=== PATIENT | male | born 1970 | race Caucasian/White ===

== ENCOUNTER 2016-05-28 09:58 | Day surgery (SDC) | payer BC ==
[~2016-05-28 09:58] MED LIST: Lactated Ringers 1,000 ML IV SCH; Sodium Chloride 0.9% 10 ML Syringe FLUSH PRN
[2016-05-28] MEDS ORDERED: fentaNYL 100 MCG/2 ML SDV ONE ×2 (10:45→10:55)
[2016-05-28] MEDS ORDERED: Propofol 200 MG/20 ML SDV ONE ×3 (10:45→11:45)
[2016-05-28] MEDS ORDERED: Midazolam 1 MG/ML 2 ML SDV ONE ×3 (10:45→11:02)
--- NOTE | 2016-05-28 10:51 | PCM.PN ---
- General Info Date of Service: 05/28/16 - Review of Systems Systems Review Comment:: 45-year-old male referred by Ino Singh for EGD and colonoscopy. The patient has been having some symptoms of epigastric pain. He also has a long- standing history of PPI agents used for GERD symptoms. He has also noted a recent change in bowel pattern with it. With a period of profound constipation. He is medically stable to proceed today. There is been no significant change in his health status since his last history and physical which is reviewed today. I have discussed the proposed EGD and colonoscopy with the patient. Risks discussed included but were not limited to bleeding and GI injury. He appears to understand and agrees to proceed. - Patient Data Vitals - most recent: Last Vital Signs Temp 97.8 F 05/28/16 10:16 Pulse 90 05/28/16 10:16 Resp 20 05/28/16 10:16 BP 156/85 H 05/28/16 10:16 Pulse Ox 100 05/28/16 10:16 Weight - most recent: 118.841 kg Med Orders - Current: Current Medications Lactated Ringer's (Ringers, Lactated) 1,000 mls @ 125 mls/hr IV ASDIRECTED PATRICK Last Admin: 05/28/16 10:28 Dose: 125 mls/hr Sodium Chloride (Saline Flush) 10 ml FLUSH ASDIRECTED PRN PRN Reason: Keep Vein Open Discontinued Medications Fentanyl (Sublimaze) Confirm Administered Dose 100 mcg .ROUTE .STK-MED ONE Stop: 05/28/16 10:46 Midazolam HCl (Versed 1 Mg/Ml) Confirm Administered Dose 4 mg .ROUTE .STK-MED ONE Stop: 05/28/16 10:46 Propofol (Diprivan 20 Ml) Confirm Administered Dose 400 mg .ROUTE .STK-MED ONE Stop: 05/28/16 10:46 - Problem List Review Problem List Initiated/Reviewed/Updated: Yes - Assessment Assessment:: Epigastric pain Change in bowel habits - Plan Plan:: EGD and colonoscopy
[2016-05-28] MEDS ORDERED: Lidocaine 2% 5 ML SDV ONE (10:55)
--- NOTE | 2016-05-28 11:43 | PCM.OPNOTE ---
- General Post-Op/Procedure Note Date of Surgery/Procedure: 05/28/16 Operative Procedure(s): EGD with Biopsy and Colonoscopy with polypectomy Findings: Small Hiatal Hernia with lower Esophageal mucosal changes Rectal and Sigmoid Colon Polyps Pre Op Diagnosis: Epigastric Pain. Change in Bowel Habits Post-Op Diagnosis: Hiatal Hernia. Colon Polyps Anesthesia Technique: MAC Primary Surgeon: Vikram Freedman Pathology: Biopsies of Gastric Antrum and Distal Esophagus Rectal and Sigmoid Colon Polyps Output, Urine Amount: 0 EBL in mLs: 3 Complications: None Condition: Good
[2016-05-28 12:20] VITALS: BP 123/63
--- NOTE | 2016-05-28 19:02 | OR ---
Date of Procedure: 05/28/2016 PREOPERATIVE DIAGNOSES: 1. Epigastric pain. 2. Change in bowel habits. POSTOPERATIVE DIAGNOSES: 1. Hiatal hernia. 2. Colon polyps. OPERATION PERFORMED: Esophagogastroduodenoscopy with biopsy and colonoscopy with polypectomy. INDICATIONS FOR SURGERY: This 45-year-old male has been having symptoms of epigastric pain. He has a longstanding history of PPI agent use and it has been many years since his last upper endoscopy. The patient has also noted a recent change in bowel habits. FINDINGS: On upper endoscopy, the patient was noted to have a small hiatal hernia and some minor mucosal changes in the lower part of the esophagus with salmon-colored mucosa over the lower 1-2 cm. No acute inflammation was seen, and no visible abnormalities were noted within the gastric mucosa or duodenum. On colonoscopy, the patient has a 1 cm pedunculated polyp at the sigmoid colon level, 25 cm from the anal verge. He also has a cluster of two small polyps, 3- 4 mm in size in the rectum, 5 cm from the anal verge. The remainder of the colon appears normal. DESCRIPTION OF PROCEDURE: The patient was taken to the operating room. He was given intravenous sedation and his throat was topically anesthetized. After mouth block was placed and IV sedation had been administered, the esophagus was intubated with the Olympus gastroscope. This was carefully advanced under direct visualization through the entire length of the esophagus, stomach, and down into the duodenum where examination of the 4th portion was performed. After carefully examining the duodenum, the scope was slowly withdrawn back up into the stomach. Full examination of the stomach including retroflexed examination of the fundus was performed. Biopsies of the antrum were taken to rule out H. pylori. The GE junction and the area of the small hiatal hernia were carefully examined, and biopsies were taken of the lower esophageal mucosa. With no sign of complicating process, the scope was then removed and attention turned to colonoscopy. Digital rectal exam shows no rectal masses. The Olympus colonoscope was inserted into the rectum and retroflexed. Examination of the rectal canal was performed. In the rectum, 5 cm from the anal verge, were two small polyps which were both easily removed grossly in their entirety with the biopsy forceps. The scope was then further advanced into the sigmoid level, where the above-described larger polyp was identified. This was removed with a cautery snare and retrieved into a polyp trap. The scope was then carefully advanced under direct visualization through the entire length of the colon until cecum was reached. Cecal acquisition was confirmed by noting the normal internal cecal anatomy including the appendiceal orifice and ileocecal valve. After examining the cecum, the scope was slowly withdrawn, sequentially re- examining the colonic segments until the entire colon and rectum had been fully examined. With no sign of any complicating process, the scope was removed and the patient was taken from the operating room in satisfactory condition. ESTIMATED BLOOD LOSS: 2 mL. COMPLICATIONS: None. PROGNOSIS: Good. BRITTANY Freedman MD /[id number]
== END 2016-05-28 12:46 | disposition home or self-care (01) ==
LOC: LL.SDS 09:58
PROVIDERS: ATTEND Surgery
DX: K63.5 Polyp of colon (principal); K62.1 Rectal polyp; K31.9 Disease of stomach and duodenum, unspecified; K22.8 Other specified diseases of esophagus; Z88.0 Allergy status to penicillin; Z79.899 Other long term (current) drug therapy; I10 Essential (primary) hypertension; K21.9 Gastro-esophageal reflux disease without esophagitis; F17.200 Nicotine dependence, unspecified, uncomplicated
CPT/HCPCS: 43239; 45385; J2250; J2704; J3010; J7120

== ENCOUNTER 2016-07-12 10:40 | Emergency (ER) | payer BC ==
[2016-07-12 10:47] VITALS: BP 124/84
[2016-07-12] MEDS ORDERED: Tetracaine 0.5% 2 ML Bottle EYERT ONE (10:49)
[2016-07-12] MEDS ORDERED: Tetracaine 0.5% 2 ML Bottle ONE (10:50)
--- NOTE | 2016-07-12 11:00 | EDM.PDOC ---
ED HPI GENERAL MEDICAL PROBLEM - General Chief Complaint: ENT Problem Stated Complaint: right eye pain Time Seen by Provider: 07/12/16 10:42 Source of Information: Reports: Patient History Limitations: Reports: No Limitations - History of Present Illness INITIAL COMMENTS - FREE TEXT/NARRATIVE: Got debrie in right eye yesterday. Irrigated out at home. Now red and painful Onset: Gradual Duration: Day(s): Location: Reports: Face Quality: Reports: Burning Severity: Moderate - Related Data Allergies Allergy/AdvReac Type Severity Reaction Status Date / Time Penicillins Allergy unknown Verified 07/12/16 10:41 Home Meds: Home Meds Pantoprazole Sodium 40 mg PO DAILY 05/28/16 [History] amLODIPine Besylate [Amlodipine Besylate] 10 mg PO DAILY 05/28/16 [History] Ibuprofen 600 mg PO Q6H PRN 07/12/16 [History] Past Medical History Cardiovascular History: Reports: Hypertension Gastrointestinal History: Reports: GERD Social & Family History - Tobacco Use Smoking Status *Q: Current Every Day Smoker Years of Tobacco use: 25 Packs/Tins Daily: 0.5 - Caffeine Use Caffeine Use: Reports: None - Alcohol Use Days Per Week of Alcohol Use: 4 - Recreational Drug Use Recreational Drug Use: No ED ROS GENERAL - Review of Systems Review Of Systems: See Below Constitutional: Reports: No Symptoms HEENT: Reports: Eye Pain ED EXAM GENERAL W FULL EYE - Physical Exam Exam: See Below Eye Exam: Right Eye: Foreign Body, Bilateral Eye: PERRL Eyelids: Bilateral: Normal Appearance Conjunctiva & Sclera: Right: Injected Cornea Exam: Right: Normal Appearance Extraocular Movements: Bilateral: Intact Comments: Small foreign body removed from under upper lid with Qtip. No others identified Course - Vital Signs Last Recorded V/S: Last Vital Signs Temp 37.1 C 07/12/16 10:46 Pulse 77 07/12/16 10:46 Resp 16 07/12/16 10:46 BP 124/84 07/12/16 10:46 Pulse Ox 98 07/12/16 10:46 - Orders/Labs/Meds Meds: Medications Discontinued Medications Generic Name Dose Route Start Last Admin Trade Name Freq PRN Reason Stop Dose Admin Tetracaine 0.25 ml 07/12/16 10:49 Pontocaine 0.5% Ophth Drops EYERT 07/12/16 10:50 ASDIRECTED ONE Tetracaine Confirm 07/12/16 10:50 Pontocaine 0.5% Ophth Drops Administered 07/12/16 10:51 Dose 2 ml .ROUTE .STK-MED ONE Departure - Departure Time of Disposition: 11:00 Disposition: Home, Self-Care 01 Clinical Impression: Conjunctivitis Qualifiers: Conjunctivitis type: unspecified Laterality: right Qualified Code(s): H10.9 - Unspecified conjunctivitis - Discharge Information Instructions: Eye Foreign Body, [id number] Forms: ED Department Discharge Additional Instructions: Use drops as directed Follow up in clinic
== END 2016-07-12 11:16 | disposition home or self-care (01) ==
LOC: LL.ED 10:40
DX: H10.9 Unspecified conjunctivitis (principal); I10 Essential (primary) hypertension; K21.9 Gastro-esophageal reflux disease without esophagitis; F17.210 Nicotine dependence, cigarettes, uncomplicated; Z88.0 Allergy status to penicillin; Z79.899 Other long term (current) drug therapy
CPT/HCPCS: 99283

== ENCOUNTER 2017-06-22 06:42 | Emergency (ER) | payer BC ==
[2017-06-22 06:49] VITALS: BP 133/83
[2017-06-22] MEDS ORDERED: Tetracaine HCl/PF 0.5% 4 ML Bottle EYERT ONE (07:31)
--- NOTE | 2017-06-22 07:38 | EDM.PDOC ---
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: Reports: Other (see below) Other Treatments STRETCHER LEVELER OPERATOR HELPER: flushed eye out Right Eye Pain Score (Numeric/FACES): 5 - Related Data Allergies Allergy/AdvReac Type Severity Reaction Status Date / Time Penicillins Allergy unknown Verified 06/22/17 06:43 Home Meds: Home Meds Pantoprazole Sodium 40 mg PO DAILY 05/28/16 [History] amLODIPine Besylate [Amlodipine Besylate] 10 mg PO DAILY 05/28/16 [History] Ibuprofen 600 mg PO Q6H PRN 07/12/16 [History] Past Medical History Cardiovascular History: Reports: Hypertension Gastrointestinal History: Reports: GERD Social & Family History - Tobacco Use Smoking Status *Q: Current Every Day Smoker Years of Tobacco use: 25 Packs/Tins Daily: 0.5 - Caffeine Use Caffeine Use: Reports: None - Alcohol Use Days Per Week of Alcohol Use: 4 Number of Drinks Per Day: 4 Total Drinks Per Week: 16 - Recreational Drug Use Recreational Drug Use: No ED ROS GENERAL - Review of Systems Review Of Systems: See Below Constitutional: Reports: No Symptoms HEENT: Reports: Eye Pain Respiratory: Reports: No Symptoms Cardiovascular: Reports: Blood Pressure Problem Endocrine: Reports: No Symptoms GI/Abdominal: Reports: No Symptoms, Other (Chronic gastritis) : Reports: No Symptoms Musculoskeletal: Reports: No Symptoms Skin: Reports: No Symptoms Neurological: Reports: No Symptoms Psychiatric: Reports: No Symptoms ED EXAM GENERAL W FULL EYE - Physical Exam Exam: See Below Exam Limited By: No Limitations General Appearance: Alert, WD/WN, No Apparent Distress Eye Exam: Right Eye: Corneal Abrasion, Bilateral Eye: EOMI, PERRL Visual Acuity (R) 20/: 30 Visual Acuity (L) 20/: 20 With Correction: No Eyelids: Bilateral: Normal Appearance, Edema, Ecchymosis, Foreign Body Conjunctiva & Sclera: Bilateral: Normal Appearance Cornea Exam: Right: Corneal Abrasion, Examined with Flourescein Extraocular Movements: Bilateral: Intact Pupils: Normal Accommodation Pupillary Size: Bilateral: 4 mm Pupillary Reaction: Right: Sluggish, Left: Brisk Anterior Chamber: Bilateral: Normal Appearance Ears: Normal External Exam, Normal Canal, Hearing Grossly Normal, Normal TMs Nose: Normal Inspection Throat/Mouth: Normal Inspection, Normal Lips, Normal Teeth, Normal Gums, Normal Oropharynx, Normal Voice, No Airway Compromise Head: Atraumatic, Normocephalic Neck: Normal Inspection, Supple, Non-Tender, Full Range of Motion Respiratory/Chest: No Respiratory Distress, Lungs Clear, Normal Breath Sounds, No Accessory Muscle Use, Chest Non-Tender Cardiovascular: Normal Peripheral Pulses, Regular Rate, Rhythm, No Edema, No Gallop, No JVD, No Murmur, No Rub GI/Abdominal: Normal Bowel Sounds, Soft, Non-Tender, No Organomegaly, No Distention, No Abnormal Bruit, No Mass (Male) Exam: No Hernia, Normal Inspection, Normal Prostate, Circumcised (Female) Exam: Normal External Exam, Normal Speculum Exam, Normal Bimanual Exam Back Exam: Normal Inspection, Full Range of Motion, NT Extremities: Normal Inspection, Normal Range of Motion, Non-Tender, Normal Capillary Refill, No Pedal Edema Neurological: Alert, Oriented, CN II-XII Intact, Normal Cognition, Normal Gait, Normal Reflexes, No Motor/Sensory Deficits Course - Vital Signs Last Recorded V/S: Last Vital Signs Temp 98.1 F 06/22/17 06:48 Pulse 81 06/22/17 06:48 Resp 18 06/22/17 06:48 BP 133/83 06/22/17 06:48 Pulse Ox 98 06/22/17 06:48 - Orders/Labs/Meds Orders: Active Orders 24 hr Category Date Time Status Tetracaine HCl/PF [Tetracaine 0.5% Steri-Unit Polly] Med 06/22/17 07:31 Once 1 ml EYERT ASDIRECTED ONE Departure - Departure Time of Disposition: 07:59 Disposition: Home, Self-Care 01 Condition: Good Clinical Impression: Corneal abrasion - Discharge Information Instructions: Corneal Abrasion Care Plan Goals: She will be sent home with an eye patch he is to wear for 24 hours Neosporin ophthalmic applied in the hospital and sent home to apply 4 times a day if needed, patient can return to work on the . - My Orders Last 24 Hours: My Active Orders 06/22/17 07:31 Tetracaine HCl/PF [Tetracaine 0.5% Steri-Unit Polly] 1 ml EYERT ASDIRECTED ONE - Assessment/Plan Last 24 Hours: My Active Orders 06/22/17 07:31 Tetracaine HCl/PF [Tetracaine 0.5% Steri-Unit Polly] 1 ml EYERT ASDIRECTED ONE
[2017-06-22] MEDS ORDERED: Balanced Salt Solution Ophth Irrig 30 ML Bottle ONE (07:42)
[2017-06-22] MEDS ORDERED: Bacitracin/Polymyxin B Ophth Oint 3.5 GM Tube ONE (07:49)
[2017-06-22] MEDS ORDERED: Balanced Salt Solution Ophth Irrig 30 ML Bottle EYERT ONE (07:50)
[2017-06-22] MEDS ORDERED: Bacitracin/Polymyxin B Ophth Oint 3.5 GM Tube EYERT SCH (08:00)
== END 2017-06-22 08:10 | disposition home or self-care (01) ==
LOC: LL.ED 06:42
DX: S05.01XA Injury of conjunctiva and corneal abrasion without foreign body, right eye, initial encounter (principal); I10 Essential (primary) hypertension; K21.9 Gastro-esophageal reflux disease without esophagitis; F17.210 Nicotine dependence, cigarettes, uncomplicated; Z88.0 Allergy status to penicillin; Z79.899 Other long term (current) drug therapy; X58.XXXA Exposure to other specified factors, initial encounter; Y99.0 Civilian activity done for income or pay
CPT/HCPCS: 99283; A9270